=== PATIENT | female | born 1995 | race Caucasian/White ===

== ENCOUNTER → 2020-02-28 16:16 | Outpatient (CLI) | payer SELFPAY ==
[2020-02-28 10:15] VITALS: BMI 21.2
== END ==
PROVIDERS: Referring Provider Nurse Practitioner Family; Visit Provider Nurse Practitioner Family
DX: L05.01 Pilonidal cyst with abscess (principal); T14.8XXA Other injury of unspecified body region, initial encounter
CPT/HCPCS: 87070; 87075; 87077; 87205

== ENCOUNTER 2020-03-19 12:05 | Observation (INO) | payer SELFPAY ==
[2020-02-28 10:15] VITALS: BMI 21.2
--- NOTE | 2020-03-18 20:45 | PCM.HP.BLA ---
History and Physical Date of Admission: 03/19/20 HISTORY OF PRESENT ILLNESS 24 year old woman presents with a recurrent painful pilonidal cyst ulcer that has worsened over the last several months. She had her initial excision of her pilonidal cyst a year and a half ago. The wound was left open and healed in secondarily. It has since recurred. She denies trauma. She denies fever. She presents at this time for further evaluation and treatment. PAST MEDICAL HISTORY Frequent headaches Pilonidal cyst Port-wine stain PAST SURGICAL HISTORY excision of pilonidal cyst ALLERGIES No Known Allergies MEDICATIONS NK FAMILY HISTORY Father - Arthritis, High cholesterol Mother - Diabetes Aunt - Uterine cancer Grandfather - Cancer Grandmother - Diabetes Grandfather - Diabetes SOCIAL HISTORY Smoking Status: Never smoker alcohol intake: never substance use type: does not use REVIEW OF SYSTEMS General - Denies fever, fatigue, and weight loss. Eyes - Denies cataracts and glaucoma. ENT - Denies nasal congestion and sore throat. Endocrine - Denies excessive thirst and urination. Skin - Denies suspicious lesions and skin cancer. Has recurrent pilonidal cyst ulcer. Musculoskeletal - Denies joint pain, joint stiffness, weakness of muscles and joints, back pain, and arthritis. Neuro - Denies headaches. Cardiovascular - Denies chest pain, fatigue, and shortness of breath with exertion. Psych - Denies anxiety and depression. Respiratory - Denies chronic cough and shortness of breath. Gastrointestinal - Denies nausea, vomiting, diarrhea, and constipation. Hematologic - Denies abnormal bruising and bleeding. Genitourinary - Denies hematuria and urinary frequency. PHYSICAL EXAMINATION General - Alert and Oriented. HEENT - PERRL. EOMI. Throat is clear. Neck - Supple and nontender. No cervical adenopathy. Lungs - Clear to auscultation. Heart - Regular rate and rhythm. Abdomen - Soft and nondistended. Extremities - FROM. No axillary adenopathy. Radial pulses are palpable. Sacral - There is a nonhealing pilonidal cyst ulcer. Tender to palpation. Measures 1.5 x 1 cm. No exposed bone. Neuro - CN II-XII grossly intact. Psych - Normal mood and affect. ASSESSMENT Recurrent painful complicated pilonidal cyst ulcer. PLAN Recommend excision of this recurrent painful complicated pilonidal cyst ulcer and send tissue to Pathology for analysis to rule out carcinoma and to Microbiology for culture. A positive culture would necessitate antibiotic therapy. Would leave the wound open and proceed with postop wound care with the VAC or with daily Silver dressing changes. Will probably excise down to the fascia. From her previous excision, if there is exposed bone after the excision, then a partial ostectomy for osteomyelitis would be done. Surgery will be done under general anesthesia with a surgical observation overnight stay in the hospital. Anticipate increased metabolic demands from the surgery. Will check a Prealbumin and encourage nutritional supplementation with protein to help the healing process. Patient was informed of the risks and complications of the procedure including alternatives to surgery. These were discussed with the patient personally. Patient voices understanding and wishes to proceed. Some of the risks and complications were included in a form from the [place] [employer]. After excision, the wound will be larger. Options for wound closure include a fasciocutaneous flap. These require postoperative bedrest for 4-6 weeks. Patient is not interested in postoperative bedrest at this time. We discussed the current risks associated with COVID-19. While it is understood that there is a community spread of COVID-19, the risk of cleopatra COVID-19 while at [facility] ([facility]) is very low; however, the risk cannot be completely mitigated because of the community spread of the disease. We discussed in detail the risk of exposure to and/or potential harm posed by the COVID-19 virus with having a surgery/procedure at this time versus the risk of delaying the surgery/procedure. It is not possible to know either the risk of delaying the surgery or procedure or chance of getting an infection with perfect accuracy, but a joint decision was made to proceed at this time with the scheduled surgery/procedure as indicated on the consent form. Patient was notified that we will need to comply with any screening or testing [facility] wishes to perform or that surgery may be delayed for any positive results. Discussed with the patient that I was tested for COVID-19 on 08/10/19 which was negative and on 08/24/19 which was negative and on 09/07/19 which was negative and on 09/21/19 which was negative and on 10/05/19 which was negative and on 10/26/19 which was negative and on 11/16/19 which was negative and on 12/21/19 which was negative and on 01/11/20 which was negative and on 01/30/20 which was negative. My testing regimen at this time is to be COVID-19 tested every 2 weeks or so. I received the COVID-19 vaccine (Moderna) on 02/07/20 and the second vaccine dose was received on 03/06/20. Procedure Criteria Procedure Type: Elective COVID Risk Discussion: The surgeon/proceduralist and patient have discussed in detail the risk of exposure to and/or potential harm posed by the COVID-19 virus with having a surgery/procedure at this time versus the risk of delaying the surgery/procedure. It is not possible to know either the risk of delaying the surgery or procedure or chance of getting an infection with perfect accuracy, but a joint decision was made between the patient and the surgeon/proceduralist to proceed at this time with the scheduled surgery/procedure as indicated on the consent form.
[2020-03-19] VITALS (10 sets, daily range): BP systolic 95–112; BP diastolic 53–71; PULSE 7–108; RESP 14–18; TEMP 36.2–37.2; O2SAT 93–100; BMI 21.9
[2020-03-19 10:31] LABS: Internal QC Validated? YES +Cl - CLEAR BKGD; Pregnancy, Urine Negative Negative
[2020-03-19] MEDS: Lactated Ringers 1,000 ML 100 ML IV ×3 (10:37→23:39)
--- NOTE | 2020-03-19 11:05 | CYST_PTH ---
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 Jamison Asencio MD : [id number] BED: 1 DIS: 03/20/2020 SPEC #: [id number] RECD: 03/19/20 11:59 STATUS: FLAVIO FLORY #: [id number] DONNA: 03/19/20 11:[address]: Jamison Asencio DEPT: SURGICAL PATHOLOGY RECD BY: Socorro Oquendo Tissues: CYST Procedures: Surgery Specimen Level III HEADER OPERATION: Surgical prep sacral area with excision painful, recurrent PRE-OP DIAGNOSIS: Recurrent, painful, complicated pilonidal cyst ulcer TISSUE SUBMITTED: Pilonidal cyst ulcer MICROSCOPIC DIAGNOSIS Pilonidal cyst, excision: Consistent with pilonidal cyst and sinus tract, inflamed. AM:jackie 03/20/2020 MICROSCOPIC DESCRIPTION Slides are reviewed. GROSS DESCRIPTION Received in fixative is one container labeled with the patient's name and designated pilonidal cyst ulcer. The specimen consists of a butterfield-white skin ellipse with underlying tissue measuring 4.5 x 1.5 cm and up to 1.7 cm in thickness. A focal area of congestion is noted on the surface. Also present in the container is a triangular piece of butterfield-white skin with underlying tissue measuring 3.5 x 3 cm and up to 3 cm in thickness. Sections do not reveal any mass lesion. Stonemason Supervisor sections are submitted in one cassette. / NAZIA:jackie 03/19/20 TC:2 CPT: 63118
[2020-03-19] MEDS: Lidocaine 2% /Epi 1:100 (50ml) 50 ML Vial (11:39)
--- NOTE | 2020-03-19 11:56 | OP.PCM_ITS ---
Report of Operation Date of Procedure: 03/19/20 Pre-Operative Diagnosis: Recurrent painful complicated pilonidal cyst ulcer. Post-Operative Diagnosis: Recurrent painful complicated pilonidal cyst ulcer with left gluteal extension. Surgery/Procedure Performed:: Excision recurrent painful complicated extensive pilonidal cyst ulcer with left gluteal extension (39 cm2). Description of Surgical Findings:: 24 year old woman presents with a recurrent painful pilonidal cyst ulcer that has worsened over the last several months. She had her initial excision of her pilonidal cyst a year and a half ago. The wound was left open and healed in secondarily. It has since recurred. She denies trauma. She denies fever. Patient was informed of the risks and complications of the procedure including alternatives to surgery. These were discussed with the patient personally. Patient voices understanding and wishes to proceed. Some of the risks and complications were included in a form from the [place] [employer]. Size of defect sacral area - 6 x 6.5 x 3 cm. prefabricated houses trimmer: None Type of Anesthesia:: General Specimen's removed: Recurrent painful complicated extensive pilonidal cyst ulcer with left gluteal extension to Pathology and Microbiology. Drains: None. Estimated Blood Loss (mL): 25 ml. Description of Procedure: Patient was taken to OR in supine position and was placed under general anesthesia. She was placed in the prone position. Excess hair was shaved. The pilonidal cyst ulcer was prepped and draped in the usual fashion. I placed the gluteal skin on stretch to help with exposure. SCD's were placed for DVT prophylaxis. Perioperative antibiotics were given intravenously. Using xylocaine with epinephrine, the pilonidal cyst ulcer was infiltrated. After waiting 5 minutes for the anesthetic to take effect, I proceeded with excision of this recurrent painful complicated pilonidal cyst ulcer down through the subcutaneous tissue until the sacral fascia was seen. There was no bone exposed. Extensive scar tissue was seen from previous surgical excisions. No pus was seen. When I got down to the sacral fascia there was a sinus tract extending on to the left gluteal area at the level of the gluteus muscle. The sinus tract was unroofed to allow easier wound care. It is important to completely excise the pilonidal cyst ulcer including any sinus tract extensions. Some of the tissue was sent to Pathology for analysis to rule out carcinoma and some of the tissue was sent to Microbiology for culture. A positive culture will necessitate antibiotic therapy. Hemostasis was obtained with electrocautery. The wound was irrigated with saline. The size of the wound after excision of this recurrent painful complicated extensive pilonidal cyst ulcer with left gluteal extension is 6 x 6.5 x 3 cm or 39 cm2. The wound was dressed with Mepitel nonadherent dressing followed by Kerlix gauze and Betadine and dry Kerlix gauze with ABD pads compression dressing. Meshed underwear was then applied. Patient tolerated the procedure well and was sent to PACU in satisfactory condition. Patient will be sent upstairs for continued postop care. Will either apply the VAC tomorrow or begin Dakin's dressing changes daily. After discharge will followup at the Wound Center. If there is a plateau in the healing process, can proceed with delayed closure with skin grafting. Grafts/Implants Used: None. - Complications None. - Admit VTE Documentation VTE Present on Admission: No VTE Mechan Device Prophylaxis: SCD's VTE Pharm Prophylaxis ordered?: No Surgery Charges CPT - 83922 ICD-10 - L05.91, L98.492
--- NOTE | 2020-03-19 14:53 | NURSING ---
In to talk with patient and mother. discussed the cost of renting the wound VAC and supplies needed as well as the need for home health. Pt is self pay and does not want the expense of the wound VAC and home health. Mother states she will be able to change the dressings at home. States she has changed them in the past. Mother will be in tomorrow am around 11am and will be taught the dressing change. Pt and mother very appreciative.
[2020-03-19] MEDS: Docusate Sodium 100 MG Capsule PO (21:32)
[2020-03-20 01:39] VITALS: BP 91/45; PULSE 57; RESP 16; TEMP 36.6; O2SAT 95
[2020-03-20 05:27] LABS: Hematocrit 41.4 % (37-47); Hemoglobin 13.8 g/dL (12.0-15.0); Mean Corp Hgb Conc 33.3 g/dL (32-36); Mean Corpuscular Hgb 30.1 pg (27.0-32.0); Mean Corpuscular Volume 90.2 fL (81-99); Mean Platelet Vol. 10.5 fl (6.2-12.0); Platelet Count 231 K/mm3 (150-450); RBC Distribution Width CV 12.2 % (11.6-14.6); RBC Distribution Width SD 40.4 fl (35.1-43.9); Red Blood Count 4.59 M/mm3 (4.2-5.4); White Blood Count 14.6 K/mm3 (4.4-11.0)
[2020-03-20 05:29] VITALS: BP 96/57; PULSE 60; RESP 16; TEMP 36.8; O2SAT 97
[2020-03-20 05:40] LABS: Erythrocyte Sedimentation Rate 4 mm/hr (0-30)
[2020-03-20 05:58] LABS: Anion Gap 5 (5-15); BUN 11 mg/dL (7-18); BUN/Creat Ratio 15.1 RATIO (10-20); CRP < 2.90 mg/L (0.0-3.0); Calcium,Total 8.7 mg/dL (8.5-10.1); Chloride 107 mmol/L (98-107); Creatinine, Serum 0.73 mg/dL (0.55-1.02); EST Glomerular Filtration Rate 105 mL/min (>60); Est Glom Filt Rate - Afr Amer 127 mL/min (>60); Estimated Creatinine Clearance 86.09 ml/min; Glucose 102 mg/dL (74-106); Potassium 3.9 mmol/L (3.5-5.1); Prealbumin 23.3 mg/dL (20.0-40.0); Sodium Level 139 mmol/L (136-145)
[2020-03-20] MEDS: Docusate Sodium 100 MG Capsule PO (08:20)
[2020-03-20] MEDS: Fluconazole 100 MG Tablet 400 MG PO (08:24)
[2020-03-20] MEDS: oxyCODONE 5 MG Tablet 10 MG PO (08:27)
[2020-03-20 10:03] VITALS: BP 92/51; PULSE 63; RESP 18; TEMP 37.1; O2SAT 99
--- NOTE | 2020-03-20 11:06 | NURSING ---
wound photo: sacrum
[2020-03-20] MEDS: DAKIN'S SOL HALF STRENGTH (=0.25%) 1 APPLIC TOPICAL (11:36)
--- NOTE | 2020-03-20 13:33 | PCM.PN.SRG ---
Subjective: Postop #1 Patient sitting in bed, states pain is well controlled. - Physical Exam Vitals/I&O's: Vital Signs Temp Pulse Resp BP Pulse Ox 98.7 F 63 18 92/51 L 99 03/20/20 10:03 03/20/20 10:03 03/20/20 10:03 03/20/20 10:03 03/20/20 10:03 Oxygen Delivery Method Room Air Weight: 112 lb 6.972 oz Body Mass Index (BMI) 21.9 Intake and Output for Last 24 Hours 03/18/20 03/19/20 03/20/20 23:59 23:59 23:59 Intake Total 2128.00 / 222.00 2534.33 / 2534.33 Balance 2128. / 2228.00 2534.33 / 2534.33 General: Alert, Oriented x3, Cooperative HEENT: Atraumatic Oral: Moist Mucosa Lungs: Normal air movement Cardiovascular: Regular rate Extremities: No edema, Capillary Refill Less than 3 Seconds Skin: Ulcer/ Wound - Sacral wound is stable. No active bleeding. Operatived dressing removed and Dakin's moistened gauze placed. Musculoskeletal: No Tenderness to Palpation of Joints or Extremities Neurological: Cranial nerves II-XII grossly intact Psych/Mental Status: Normal Affect, Appropriate Microbiology Past 72 Hours 03/19/20 12:21 Wound Abcess - Pilondial Gram Stain - Final 03/19/20 12:21 Wound Abcess - Pilondial Wound Culture - Preliminary No growth-Final to follow 03/18/20 09:40 Interface Orders SARS-CoV-2 Antigen (Rapid) - Final Laboratory Results 03/20/20 05:08: WBC 14.6 H, RBC 4.59, Hgb 13.8, Hct 41.4, MCV 90.2, MCH 30.1, MCHC 33.3, RDW Std Deviation 40.4, RDW Coeff of Avani 12.2, Plt Count 231, MPV 10.5, ESR 4 03/20/20 05:08: Sodium 139, Potassium 3.9, Chloride 107, Carbon Dioxide 27.0, Anion Gap 5, BUN 11, Creatinine 0.73, Estim Creat Clear Calc 86.09, Est GFR (MDRD) Af Amer 127, Est GFR (MDRD) Non-Af 105, BUN/Creatinine Ratio 15.1, Glucose 102, Calcium 8.7, C-React Prot Ext Range < 2.90, Prealbumin 23.3 Current Medications Diazepam (Diazepam 5 Mg Tablet) 5 mg PO 4X/DAY PRN PRN PRN Reason: SPASMS Docusate Sodium (Docusate Sodium 100 Mg Capsule) 100 mg PO BID [facility] Last Admin: 03/20/20 08:20 Dose: 100 mg Documented by: Fluconazole (Fluconazole 100 Mg Tablet) 400 mg PO DAILY [facility] Last Admin: 03/20/20 08:24 Dose: 400 mg Documented by: Hydromorphone HCl (Hydromorphone 1 Mg/Ml Syringe) 1 mg IV Q4H PRN PRN PRN Reason: Pain Score 6-10 Lactated Ringer's () 1,000 mls @ 100 mls/hr IV .Q10H [facility] Last Infusion: 03/20/20 11:36 Dose: Infused Documented by: Ampicillin Sodium/Sulbactam (Sodium 3 gm/ Sodium Chloride) 112 mls @ 150 mls/hr IV Q6 [facility] Last Infusion: 03/20/20 12:33 Dose: Infused Documented by: Nutritional Formula (Nutritional Supplement (Mac) Packet) [facility] Last Admin: 03/20/20 08:23 Dose: 1 packet Documented by: Ondansetron HCl (Ondansetron 4 Mg/2 Ml Vial) 4 mg IV Q6H PRN PRN PRN Reason: NAUSEA Oxycodone HCl (Oxycodone 5 Mg Tablet) 10 mg PO Q4H PRN PRN PRN Reason: Pain Score 4-5 Last Admin: 03/20/20 08:27 Dose: 10 mg Documented by: Promethazine HCl (Promethazine 25 Mg Tablet) 25 mg PO Q4H PRN PRN PRN Reason: NAUSEA/VOMITING Sodium Chloride (0.9% Saline Lock 10 Ml Syringe) 10 - 40 ml IV UD PRN PRN Reason: SALINE FLUSH Sodium Hypochlorite (Dakin's Jennifer Half Strength (=0.25%)) 1 applic TOPICAL DAILY [facility]; Protocol Last Admin: 03/20/20 11:36 Dose: 1 applic Documented by: Medical Necessity - Tobacco Use Smoking Status: Never smoker Tobacco Use: Non-smoker Assessment/Plan 1. Pilonidal cyst without abscess 2. 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 Patient is doing well. Pain is well controlled. Wound care will be Dakin's moistened gauze covered by gauze daily. Her mother feels comfortable doing the dressing changes. Operative cultures are pending. Cultures from 02/28/20 showed Corynebacterium amycolatum, Presumptive C. albicans and Anaerobic cocci. She will continue her Augmentin (she has some at home) and Diflucan. Prealbumin 23.3. Encouraged increase protein intake to help with wound healing. She will follow up Wednesday at the wound center.
--- NOTE | 2020-03-20 13:59 | DCINST_ITS ---
You will use the following diet at home:: Regular Discharge Activity: May not drive while taking narcotic pain medications., May Shower May resume sexual activity in: 4-6 weeks Lifting Restrictions: 20 lb weight lifting restriction Call your doctor if your incision/area has: Continuous Slow Oozing, Sudden Increased Bleeding, Increased Pain/ Swelling, Increased Redness, Foul Smelling Discharge, Swelling at the incision site Call your doctor if you observe: Fever of 101 or Higher, Inability to urinate, Inability to have a bowel movement, Shortness of breath, Dizziness, Chest pain, Calf discomfort, Uncontrolled pain Change Dressing in (Days):: 1 - Wash with mild soap and water daily. Daily Dakin's moistened gauze dressing change daily, topped with dry gauze. Cleanse incision/area with: Soap & Water Allergies/Adverse Reactions: Allergies No Known Allergies Allergy (Verified 03/11/20 11:13) Medications to take at Discharge amoxicillin 875 mg-potassium clavulanate 125 mg tablet 1 tab PO Q12H 14 Days #28 tab 03/08/20 L.acidoph,Paracasei, B.lactis [Probiotic] 1 ea PO DAILY 03/11/20 Fluconazole [Diflucan] 400 mg PO DAILY 30 Days #60 tab 03/20/20 Oxycodone HCl/Acetaminophen [Percocet 5/325] 1 tablet PO Q6H PRN PRN 7 Days #28 tablet 03/20/20 proMETHazine tablet [Phenergan tablet] 25 mg PO Q6H PRN PRN 7 Days #30 tab 03/20/20 The following prescriptions were given: Fluconazole [Diflucan] 400 mg PO DAILY 30 Days #60 tab Transmission Status: Pending to [facility] Oxycodone HCl/Acetaminophen [Percocet 5/325] 1 tablet PO Q6H PRN PRN 7 Days #28 tablet PRN Reason: Pain Score 6-10 Transmission Status: Sent to [facility] proMETHazine tablet [Phenergan tablet] 25 mg PO Q6H PRN PRN 7 Days #30 tab PRN Reason: Nausea Transmission Status: Pending to [facility] Primary Care Physician: MIKEY MOODY [Other] Test Results: Test results from this visit will be discussed in further detail at your follow- up appointment, if applicable. Please Follow Up With: Dr. Luis M Perez Wednesday at Wound Center on Wednesday03/25/19. [phone] Proposed Discharge Date: 03/20/20
== END 2020-03-20 16:06 | disposition home or self-care (01) ==
LOC: SDC 13:10 → MS3 13:10
PROVIDERS: Anesthesiology; Admitting Provider Surgery; Referring Provider Surgery; Visit Provider Surgery
PROC: (CPT 11772; principal; 2020-03-19 10:50)
DX: L05.91 Pilonidal cyst without abscess (principal); Z20.828 Contact with and (suspected) exposure to other viral communicable diseases
CPT/HCPCS: 00300; 11772; 80048; 81025; 84134; 85027; 85652; 86140; 87070; 87075; 87102; 87176; 87205; 87206; 87426; 88304; 96361; 96365; 96366; 99218; 99251; C9803; J7120; G0378; G0379; G0463; J0295; J2405

== ENCOUNTER 2020-03-25 10:21 | Outpatient (RCR) | payer SELFPAY ==
[2020-03-19 13:35] VITALS: BMI 21.9
[2020-03-25 10:33] VITALS: BP 102/63; PULSE 71; TEMP 36.5; BMI 21.9
--- NOTE | 2020-03-25 23:12 | PN.PCM_ITS ---
Type of Wound Date of Service: 03/25/20 Chief Complaint: Nonhealing surgical pilonidal ulcer sacral area. History of Wound: Surgery 03/19/20 - Excision recurrent painful complicated extensive pilonidal cyst ulcer with left gluteal extension (39 cm2). Wound care - Dakin's dressing changes. Operative culture - Anaerobic cocci. Preoperative culture from 02/28/20 showed Corynebacterium amycolatum, Merline albicans and Anaerobic cocci. She was placed on Augmentin and Diflucan and is finishing the Augmentin. Prealbumin from 03/20/20 was 23.3. Encourage nutritional supplementation with protein to help the healing process. She has noticed some muscle spasm with the Dakin's dressing changes. Today she denies fever. Her appetite is good. Progress of Wound: Recent surgery 03/19/20. - Physical Exam Vital Signs Temp Pulse BP 97.7 F L 71 102/63 03/25/20 10:33 03/25/20 10:33 03/25/20 10:33 Wound Measurements and Assessment WC - Nurse 1 - General Ulcer Measurement Start: 03/25/20 10:26 Freq: Status: Active Protocol: Activity Type Activity Date Activity User E-Sign Co-Sign Detail Recorded Client Recorded Date Recorded By Document 03/25/20 10:33 [facility] [id number] 03/25/20 10:49 [facility] 03/25/20 10:33 Wound Center Nurse 1 [Ulcer Assessment] #1- L BUTTOCK/SACRAL POST OP -Combined with other wound No -Current Size (cm) - Length 6.4 -Current Size (cm) - Width 2 -Current Size (cm) - Depth 4.1 -Total Square Cm 12.8 -Date of Last Picture (Recall this 03/25/20 field) -Photo Taken Yes -Epithelialization None Present -Tunneling No -Undermining/Tunneling No -Circular Undermining No -Exudate Amt Large -Exudate Type Serosanguineous -Wound Margin Distinct, Outline Attached -Granulation Amt Large (67-100%) -Granulation Quality Red -Slough/Fibrin Yes -Necrosis Amt Medium (34-66%) -Necrotic Tissue Type Adherent Slough -Texture (Idalia-wound Skin Appearance) Assessed -Moisture ([place]alia-wound Skin Appearance Assessed ) -Color ([place]alia-wound Skin Appearance) Assessed -Temperature ([place]-wound Skin No Abnormality Appearance) (Pt Warm) -Tenderness on Palpation ([place]-wound Yes Skin Appearance) -Ulcer Cleansing SOAPY WATER -Foul Odor after Cleansing No -Anesthetic Used 4% Lidocaine Solution JAMES - Nurse 2 - General Ulcer CM Notes Start: 03/25/20 10:26 Freq: Status: Active Protocol: Activity Type Activity Date Activity User E-Sign Co-Sign Detail Recorded Client Recorded Date Recorded By Document 03/25/20 11:02 CHET [id number] 03/25/20 11:07 CHET 03/25/20 11:02 Wound Center Nurse 2 [Procedure/Treatment] -Correct Patient No -Correct Side, Site, Position No -Correct Procedure No -Procedure Performed No -Tunneling No -Undermining/Tunneling No -Circular Undermining No -Wound/Ulcer Outcome Not Healed -Ulcer Cleansing Rinsed/ Irrigated with Saline -Foul Odor after Cleansing No -Bioengineered Tissue No -Debridement - Subq, 1st 20sq cm No [See Physician Procedure note for Specifics] Pain Scale: 0-10 Numeric [Pain] -Is Patient Pain Free? Yes - Nurse 3 - General Ulcer D/C NN Start: 03/25/20 10:26 Freq: Status: Active Protocol: Activity Type Activity Date Activity User E-Sign Co-Sign Detail Recorded Client Recorded Date Recorded By Document 03/25/20 11:20 DL [id number] 03/25/20 11:23 DL 03/25/20 11:20 Wound Care Nurse 3 [Wound Dressing] #1- L BUTTOCK/SACRAL POST OP -Ulcer Cleansing soap and water -Primary Dressing Covered/Secured Dry Gauze, with Secured with Tape,Other -Other Covering moist to dry topped with dry Pain Scale: 0-10 Numeric [Pain] -Is Patient Pain Free? Yes - Visit Discharge [Visit Discharge Information] -Discharge Condition Stable -Ambulatory Status Ambulatory -Accompanied by mother -Medication Reconcilliation completed No & provided to patient/care provider -Clinical Summary of Care Provided Yes Debridement Note Post-Debridement Measurements/Treatment JAMES - Nurse 2 - General Ulcer CM Notes Start: 03/25/20 10:26 Freq: Status: Active Protocol: Activity Type Activity Date Activity User E-Sign Co-Sign Detail Recorded Client Recorded Date Recorded By Document 03/25/20 11:02 CHET [id number] 03/25/20 11:07 JF 03/25/20 11:02 Wound Center Nurse 2 #1- L BUTTOCK/SACRAL POST OP -Correct Patient No -Correct Side, Site, Position No -Correct Procedure No -Procedure Performed No -Tunneling No -Undermining/Tunneling No -Circular Undermining No -Wound/Ulcer Outcome Not Healed -Ulcer Cleansing Rinsed/ Irrigated with Saline -Foul Odor after Cleansing No -Bioengineered Tissue No -Debridement - Subq, 1st 20sq cm No Pain Scale: 0-10 Numeric Is Patient Pain Free? Yes WC - Nurse 3 - General Ulcer D/C NN Start: 03/25/20 10:26 Freq: Status: Active Protocol: Activity Type Activity Date Activity User E-Sign Co-Sign Detail Recorded Client Recorded Date Recorded By Document 03/25/20 11:20 DL [id number] 03/25/20 11:23 DL 03/25/20 11:20 Wound Care Nurse 3 #1- L BUTTOCK/SACRAL POST OP -Ulcer Cleansing soap and water -Primary Dressing Covered/Secured with Dry Gauze, Secured with Tape,Other -Other Covering moist to dry topped with dry Pain Scale: 0-10 Numeric Is Patient Pain Free? Yes WC - Visit Discharge Discharge Condition Stable Ambulatory Status Ambulatory Accompanied by mother Medication Reconcilliation completed & No provided to patient/care provider Clinical Summary of Care Provided Yes Wound debrided: #1 Sacral area. Laterality: Not Applicable Wound Grade/Stage: 2. No debridement was completed today - Patient had recent surgery on 03/19/20. Assessment/Plan Assessment: 1. Recurrent painful complicated pilonidal cyst ulcer with left gluteal extension. 2. s/p excision recurrent painful complicated extensive pilonidal cyst ulcer with left gluteal extension (39 cm2). Plan: Continue Dakin's dressing changes daily. Operative culture showed Anaerobic cocci. Preop culture from 02/28/20 showed Corynebacerium amycolatum, Merline albicans, and Anaerobic cocci. She is currently on Augmentin and Diflu can and is finishing the Augmentin. Prealbumin from 03/20/20 was 23.3. Encourage nutritional supplementation with protein to help the healing process. Wrote script for Valium for spasm (21 tabs). Followup 2 weeks. [id number]: [id number] Global Visit - ICD-10 - Z48.89, L98.492, L05.91
== END 2020-04-07 23:59 ==
LOC: WC 10:21
PROVIDERS: Visit Provider Nurse Practitioner Family
DX: L05.91 Pilonidal cyst without abscess (principal)
CPT/HCPCS: 99213; G0463

== ENCOUNTER 2020-05-06 10:15 | Outpatient (RCR) | payer SELFPAY ==
[2020-04-08 00:37] VITALS: BP 102/63; PULSE 71; TEMP 36.5
[2020-04-08 11:07] VITALS: BP 101/65; PULSE 62; RESP 16; TEMP 35.9; BMI 21.9
--- NOTE | 2020-04-08 12:41 | PCM.WC.PN ---
(1) Chronic ulcer of sacral region with fat layer exposed Status: Chronic Code(s): L98.492 - Non-pressure chronic ulcer of skin of other sites with fat layer exposed (2) Pilonidal cyst without abscess Status: Chronic Code(s): L05.91 - Pilonidal cyst without abscess Type of Wound Date of Service: 04/08/20 Chief Complaint: Nonhealing surgical pilonidal ulcer sacral area. History of Wound: Surgery 03/19/20 - Excision recurrent painful complicated extensive pilonidal cyst ulcer with left gluteal extension (39 cm2). Wound care - Dakin's dressing changes topped with an ABD pad. Operative culture - Anaerobic cocci. Preoperative culture from 02/28/20 showed Corynebacterium amycolatum, Merline albicans and Anaerobic cocci. She was placed on Augmentin and Diflucan and is finishing the Augmentin. Prealbumin from 03/20/20 was 23.3. Encourage nutritional supplementation with protein to help the healing process. She has noticed some muscle spasm with the Dakin's dressing changes. Today she denies fever. Her appetite is good. Progress of Wound: Recent surgery 03/19/20. Also showing improvement, it is a nice beefy pink color. It is decreasing in depth. - Physical Exam Vital Signs Temp Pulse Resp BP 96.7 F L 62 16 101/65 04/08/20 11:07 04/08/20 11:07 04/08/20 11:07 04/08/20 11:07 General: Alert, Oriented x3, Cooperative HEENT: Atraumatic Oral: Moist Mucosa Lungs: Normal air movement Cardiovascular: Regular rate Extremities: No edema, Capillary Refill Less than 3 Seconds Skin: Ulcer/ Wound - Sacral ulcer is beefy pink with decreased depth. Wound Measurements and Assessment WC - Nurse 1 - General Ulcer Measurement Start: 04/08/20 11:07 Freq: Status: Active Protocol: Activity Type Activity Date Activity User E-Sign Co-Sign Detail Recorded Client Recorded Date Recorded By Document 04/08/20 11:07 [facility] [id number] 04/08/20 11:17 [facility] 04/08/20 11:07 Wound Center Nurse 1 [Ulcer Assessment] #1- L BUTTOCK/SACRAL POST OP -Combined with other wound No -Current Size (cm) - Length 5 -Current Size (cm) - Width 1.6 -Current Size (cm) - Depth 4.4 -Total Square Cm 8.0 -Photo Taken No -Epithelialization Small 1-33% -Tunneling No -Undermining/Tunneling No -Circular Undermining No -Exudate Amt Medium -Exudate Type Serosanguineous -Wound Margin Distinct, Outline Attached -Granulation Amt Large (67-100%) -Granulation Quality Red -Slough/Fibrin Yes -Necrosis Amt Small (1-33%) -Necrotic Tissue Type Adherent Slough -Texture ([place]-wound Skin Appearance) Assessed, Scarring -Moisture ([place]-wound Skin Appearance Assessed ) -Color ([place]-wound Skin Appearance) Assessed -Temperature ([place]-wound Skin No Abnormality Appearance) (Pt Warm) -Tenderness on Palpation ([place]-wound No Skin Appearance) -Ulcer Cleansing Rinsed/ Irrigated with Saline -Foul Odor after Cleansing No -Anesthetic Used 4% Lidocaine Solution WC - Nurse 2 - General Ulcer CM Notes Start: 04/08/20 11:07 Freq: Status: Active Protocol: Activity Type Activity Date Activity User E-Sign Co-Sign Detail Recorded Client Recorded Date Recorded By Document 04/08/20 11:35 CHET [id number] 04/08/20 11:40 CHET 04/08/20 11:35 Wound Center Nurse 2 [Procedure/Treatment] -Time 11:37 -Correct Patient Yes -Correct Side, Site, Position Yes -Correct Procedure Yes -Procedure Performed Yes -Type of Procedure Debridement -Clinical Debridement Subcutaneous -Tissue Removed Subcutaneous -Post Debridement (cm) - Length 5 -Post Debridement (cm) - Width 2.8 -Post Debridement (cm) - Depth 3.2 -Total Square (Post) (cm) 14.0 -Area of Debridement (cm) - Length 5 -Area of Debridement (cm) - Width 2.8 -Total Square (Area) (cm) 14.0 -Tunneling No -Undermining/Tunneling No -Circular Undermining No -Wound/Ulcer Outcome Not Healed -Ulcer Cleansing Rinsed/ Irrigated with Saline -Foul Odor after Cleansing No -Bioengineered Tissue No -Bleeding Controlled with Pressure -Offloading No -Treatment Response Procedure Tolerated Well -Debridement - Subq, 1st 20sq cm Yes [See Physician Procedure note for Specifics] Pain Scale: 0-10 Numeric [Pain] -Is Patient Pain Free? Yes WC - Nurse 3 - General Ulcer D/C NN Start: 04/08/20 11:07 Freq: Status: Active Protocol: Activity Type Activity Date Activity User E-Sign Co-Sign Detail Recorded Client Recorded Date Recorded By Document 04/08/20 11:49 DL [id number] 04/08/20 11:50 DL 04/08/20 11:49 Wound Care Nurse 3 [Wound Dressing] #1- L BUTTOCK/SACRAL POST OP -Ulcer Cleansing Rinsed/ Irrigated with Saline -Foul Odor after Cleansing No -Other Dressing moist to dry/ super absorbant -Primary Dressing Covered/Secured Dry Gauze, with Secured with Tape [Post Procedure Tolerated] -Treatment Response Procedure Tolerated Well Pain Scale: 0-10 Numeric [Pain] -Is Patient Pain Free? Yes - Visit Discharge [Visit Discharge Information] -Discharge Condition Stable -Ambulatory Status Ambulatory -Transportation Private Auto Musculoskeletal: No Tenderness to Palpation of Joints or Extremities Neurological: Cranial nerves II-XII grossly intact Psych/Mental Status: Normal Affect, Appropriate Debridement Note Post-Debridement Measurements/Treatment - Nurse 2 - General Ulcer CM Notes Start: 04/08/20 11:07 Freq: Status: Active Protocol: Activity Type Activity Date Activity User E-Sign Co-Sign Detail Recorded Client Recorded Date Recorded By Document 04/08/20 11:35 CHET [id number] 04/08/20 11:40 CHET 04/08/20 11:35 Wound Center Nurse 2 #1- L BUTTOCK/SACRAL POST OP -Time 11:37 -Correct Patient Yes -Correct Side, Site, Position Yes -Correct Procedure Yes -Procedure Performed Yes -Type of Procedure Debridement -Clinical Debridement Subcutaneous -Tissue Removed Subcutaneous -Post Debridement (cm) - Length 5 -Post Debridement (cm) - Width 2.8 -Post Debridement (cm) - Depth 3.2 -Total Square (Post) (cm) 14.0 -Area of Debridement (cm) - Length 5 -Area of Debridement (cm) - Width 2.8 -Total Square (Area) (cm) 14.0 -Tunneling No -Undermining/Tunneling No -Circular Undermining No -Wound/Ulcer Outcome Not Healed -Ulcer Cleansing Rinsed/ Irrigated with Saline -Foul Odor after Cleansing No -Bioengineered Tissue No -Bleeding Controlled with Pressure -Offloading No -Treatment Response Procedure Tolerated Well -Debridement - Subq, 1st 20sq cm Yes Pain Scale: 0-10 Numeric Is Patient Pain Free? Yes WC - Nurse 3 - General Ulcer D/C NN Start: 04/08/20 11:07 Freq: Status: Active Protocol: Activity Type Activity Date Activity User E-Sign Co-Sign Detail Recorded Client Recorded Date Recorded By Document 04/08/20 11:49 DL [id number] 04/08/20 11:50 DL 04/08/20 11:49 Wound Care Nurse 3 #1- L BUTTOCK/SACRAL POST OP -Ulcer Cleansing Rinsed/ Irrigated with Saline -Foul Odor after Cleansing No -Other Dressing moist to dry/ super absorbant -Primary Dressing Covered/Secured with Dry Gauze, Secured with Tape Treatment Response Procedure Tolerated Well Pain Scale: 0-10 Numeric Is Patient Pain Free? Yes WC - Visit Discharge Discharge Condition Stable Ambulatory Status Ambulatory Transportation Private Auto Wound debrided: Sacral ulcer Type of Debridement: Excisional debridement Anesthesia Used: 5% Lidocaine Gel Depth: Down to and including healthy tissue, in the subcutaneous layer Percentage of wound debrided: 100 Instrument Used: 5mm curette Tissue Removed: Subcutaneous tissue and slough Severity: Fat Layer Exposed Amount of bleeding with debridement: Mild Bleeding Controlled with: Pressure Patient tolerated procedure well Assessment/Plan Assessment: 1. Recurrent painful complicated pilonidal cyst ulcer with left gluteal extension. 2. s/p excision recurrent painful complicated extensive pilonidal cyst ulcer with left gluteal extension (39 cm2). Plan: Continue Dakin's dressing changes daily topped with ABD pad. Operative culture showed Anaerobic cocci. Preop culture from 02/28/20 showed Corynebacerium amycolatum, Merline albicans, and Anaerobic cocci. She is currently on Augmentin and Diflucan and is finishing the Augmentin. Prealbumin from 03/20/20 was 23.3. Encourage nutritional supplementation with protein to help the healing process. She states that her pain is well controlled, and is rarely taking Valium for muscle spasms. She is to continue her fluconazole which she has a refill for. We will check a CMP at her next visit. Followup 2 weeks. [id number]: [id number] Global Visit
[2020-04-22 10:42] VITALS: BP 113/60; PULSE 59; RESP 16; TEMP 36.8; BMI 21.9
[2020-04-22 11:34] VITALS: BP 115/60
[2020-04-22 12:55] LABS: ALB/GLOB Ratio 1.1 RATIO (0.9-2.4); AST(SGOT) 20 U/L (15-37); Alanine Aminotransfer ALT/SGPT 23 U/L (13-56); Alkaline Phosphatase 56 U/L (45-117); Anion Gap 3 (5-15); BUN 17 mg/dL (7-18); BUN/Creat Ratio 19.2 RATIO (10-20); Calcium,Total 9.3 mg/dL (8.5-10.1); Chloride 104 mmol/L (98-107); Creatinine, Serum 0.89 mg/dL (0.55-1.02); EST Glomerular Filtration Rate 84 mL/min (>60); Est Glom Filt Rate - Afr Amer 101 mL/min (>60); Estimated Creatinine Clearance 70.61 ml/min; Globulin 3.6 g/dL (2.2-4.2); Glucose 84 mg/dL (74-106); Protein, Total 7.6 g/dL (6.4-8.2); Sodium Level 137 mmol/L (136-145)
--- NOTE | 2020-04-22 14:44 | PCM.WC.PN ---
(1) Chronic ulcer of sacral region with fat layer exposed Status: Chronic Code(s): L98.492 - Non-pressure chronic ulcer of skin of other sites with fat layer exposed (2) Pilonidal cyst without abscess Status: Chronic Code(s): L05.91 - Pilonidal cyst without abscess Type of Wound Date of Service: 04/22/20 Chief Complaint: Nonhealing surgical pilonidal ulcer sacral area. History of Wound: Surgery 03/19/20 - Excision recurrent painful complicated extensive pilonidal cyst ulcer with left gluteal extension (39 cm2). Wound care - Dakin's dressing changes topped with an ABD pad. Operative culture - Anaerobic cocci. Preoperative culture from 02/28/20 showed Corynebacterium amycolatum, Merline albicans and Anaerobic cocci. She was placed on Augmentin and Diflucan and is finishing the Augmentin. Prealbumin from 03/20/20 was 23.3. Encourage nutritional supplementation with protein to help the healing process. She has noticed some muscle spasm with the Dakin's dressing changes. Today she denies fever. Her appetite is good. Progress of Wound: Improved overall size and depth. - Physical Exam Vital Signs Temp Pulse Resp BP 98.2 F 59 L 16 115/60 04/22/20 10:42 04/22/20 10:42 04/22/20 10:42 04/22/20 11:34 General: Alert, Oriented x3, Cooperative HEENT: Atraumatic Oral: Moist Mucosa Lungs: Normal air movement Cardiovascular: Regular rate Extremities: No edema, Capillary Refill Less than 3 Seconds Skin: Ulcer/ Wound - Coccyx ulcer is beefy pink in color and smaller in size and depth. Wound Measurements and Assessment WC - Nurse 1 - General Ulcer Measurement Start: 04/08/20 11:07 Freq: Status: Active Protocol: Activity Type Activity Date Activity User E-Sign Co-Sign Detail Recorded Client Recorded Date Recorded By Document 04/22/20 10:42 [facility] [id number] 04/22/20 10:53 [facility] 04/22/20 10:42 Wound Center Nurse 1 [Ulcer Assessment] #1- L BUTTOCK/SACRAL POST OP -Combined with other wound No -Current Size (cm) - Length 3.4 -Current Size (cm) - Width 1.4 -Current Size (cm) - Depth 1 -Total Square Cm 4.76 -Photo Taken No -Epithelialization Small 1-33% -Tunneling No -Undermining/Tunneling No -Circular Undermining No -Exudate Amt Medium -Exudate Type Serosanguineous -Wound Margin Distinct, Outline Attached -Granulation Amt Large (67-100%) -Granulation Quality Red -Slough/Fibrin Yes -Necrosis Amt Small (1-33%) -Necrotic Tissue Type Adherent Slough -Texture ([place]-wound Skin Appearance) Assessed, Scarring -Moisture ([place]-wound Skin Appearance Assessed ) -Color ([place]-wound Skin Appearance) Assessed -Temperature ([place]-wound Skin No Abnormality Appearance) (Pt Warm) -Tenderness on Palpation ([place]-wound No Skin Appearance) -Ulcer Cleansing Rinsed/ Irrigated with Saline -Foul Odor after Cleansing No -Anesthetic Used 4% Lidocaine Solution JAMES - Nurse 2 - General Ulcer CM Notes Start: 04/08/20 11:07 Freq: Status: Active Protocol: Activity Type Activity Date Activity User E-Sign Co-Sign Detail Recorded Client Recorded Date Recorded By Document 04/22/20 11:22 CHET [id number] 04/22/20 11:27 CHET 04/22/20 11:22 Wound Center Nurse 2 [Procedure/Treatment] -Time 11:23 -Correct Patient Yes -Correct Side, Site, Position Yes -Correct Procedure Yes -Procedure Performed Yes -Type of Procedure Debridement -Clinical Debridement Subcutaneous -Tissue Removed Subcutaneous -Post Debridement (cm) - Length 3.5 -Post Debridement (cm) - Width 2.3 -Post Debridement (cm) - Depth 1.7 -Total Square (Post) (cm) 8.05 -Area of Debridement (cm) - Length 3.5 -Area of Debridement (cm) - Width 2.3 -Total Square (Area) (cm) 8.05 -Tunneling No -Undermining/Tunneling No -Circular Undermining No -Wound/Ulcer Outcome Not Healed -Ulcer Cleansing Rinsed/ Irrigated with Saline -Foul Odor after Cleansing No -Bioengineered Tissue No -Bleeding Controlled with Pressure -Offloading No -Treatment Response Procedure Tolerated Well -Debridement - Subq, 1st 20sq cm Yes [See Physician Procedure note for Specifics] Pain Scale: 0-10 Numeric [Pain] -Is Patient Pain Free? Yes JAMES - Nurse 3 - General Ulcer D/C NN Start: 04/08/20 11:07 Freq: Status: Active Protocol: Activity Type Activity Date Activity User E-Sign Co-Sign Detail Recorded Client Recorded Date Recorded By Document 04/22/20 11:34 [id number] 04/22/20 11:35 RB 04/22/20 11:34 Wound Care Nurse 3 [Wound Dressing] #1- L BUTTOCK/SACRAL POST OP -Ulcer Cleansing Rinsed/ Irrigated with Saline -Other Dressing moistened gauze -Primary Dressing Covered/Secured Dry Gauze, with Secured with Tape Vital Signs [Blood Pressure] -Blood Pressure (90/60-120/80) 115/60 -Blood Pressure Mean (mm Hg) 78 -Source Monitor -Position Semi-Fowlers -Blood Pressure Location Left Arm Pain Scale: 0-10 Numeric [Pain] -Is Patient Pain Free? Yes WC - Visit Discharge [Visit Discharge Information] -Discharge Condition Stable -Ambulatory Status Ambulatory -Transportation Private Auto -Medication Reconcilliation completed No & provided to patient/care provider -Clinical Summary of Care Provided Yes Musculoskeletal: No Tenderness to Palpation of Joints or Extremities Neurological: Cranial nerves II-XII grossly intact Psych/Mental Status: Normal Affect, Appropriate Debridement Note Post-Debridement Measurements/Treatment WC - Nurse 2 - General Ulcer CM Notes Start: 04/08/20 11:07 Freq: Status: Active Protocol: Activity Type Activity Date Activity User E-Sign Co-Sign Detail Recorded Client Recorded Date Recorded By Document 04/08/20 11:35 [id number] 04/08/20 11:40 Document 04/22/20 11:22 [id number] 04/22/20 11:27 04/08/20 04/22/20 11:35 11:22 Wound Center Nurse 2 #1- L BUTTOCK/SACRAL POST OP -Time 11:37 11:23 -Correct Patient Yes Yes -Correct Side, Site, Position Yes Yes -Correct Procedure Yes Yes -Procedure Performed Yes Yes -Type of Procedure Debridement Debridement -Clinical Debridement Subcutaneous Subcutaneous -Tissue Removed Subcutaneous Subcutaneous -Post Debridement (cm) - Length 5 3.5 -Post Debridement (cm) - Width 2.8 2.3 -Post Debridement (cm) - Depth 3.2 1.7 -Total Square (Post) (cm) 14.0 8.05 -Area of Debridement (cm) - Length 5 3.5 -Area of Debridement (cm) - Width 2.8 2.3 -Total Square (Area) (cm) 14.0 8.05 -Tunneling No No -Undermining/Tunneling No No -Circular Undermining No No -Wound/Ulcer Outcome Not Healed Not Healed -Ulcer Cleansing Rinsed/ Rinsed/ Irrigated with Irrigated with Saline Saline -Foul Odor after Cleansing No No -Bioengineered Tissue No No -Bleeding Controlled with Pressure Pressure -Offloading No No -Treatment Response Procedure Procedure Tolerated Well Tolerated Well -Debridement - Subq, 1st 20sq cm Yes Yes Pain Scale: 0-10 Numeric Is Patient Pain Free? Yes Yes - Nurse 3 - General Ulcer D/C NN Start: 04/08/20 11:07 Freq: Status: Active Protocol: Activity Type Activity Date Activity User E-Sign Co-Sign Detail Recorded Client Recorded Date Recorded By Document 04/08/20 11:49 DL [id number] 04/08/20 11:50 DL Document 04/22/20 11:34 RB [id number] 04/22/20 11:35 RB 04/08/20 04/22/20 11:49 11:34 Wound Care Nurse 3 #1- L BUTTOCK/SACRAL POST OP -Ulcer Cleansing Rinsed/ Rinsed/ Irrigated with Irrigated with Saline Saline -Foul Odor after Cleansing No -Other Dressing moist to dry/ moistened gauze super absorbant -Primary Dressing Covered/Secured with Dry Gauze, Dry Gauze, Secured with Secured with Tape Tape Treatment Response Procedure Tolerated Well Vital Signs Blood Pressure (90/60-120/80) 115/60 Blood Pressure Mean (mm Hg) 78 Source Monitor Position Semi-Fowlers Blood Pressure Location Left Arm Pain Scale: 0-10 Numeric Is Patient Pain Free? Yes Yes WC - Visit Discharge Discharge Condition Stable Stable Ambulatory Status Ambulatory Ambulatory Transportation Private Auto Private Auto Medication Reconcilliation completed & No provided to patient/care provider Clinical Summary of Care Provided Yes Wound debrided: Coccyx Type of Debridement: Excisional debridement Anesthesia Used: 5% Lidocaine Gel Depth: Down to and including healthy tissue, in the subcutaneous layer Percentage of wound debrided: 100 Instrument Used: 5mm curette Tissue Removed: Subcutaneous tissue and slough Severity: Fat Layer Exposed Amount of bleeding with debridement: Mild Bleeding Controlled with: Pressure Patient tolerated procedure well Assessment/Plan Active Problems (Last Updated 03/01/20 @ 10:[address] Jamison Asencio MD) Chronic ulcer of sacral region with fat layer exposed (Chronic) Pilonidal cyst without abscess (Chronic) Assessment: 1. Recurrent painful complicated pilonidal cyst ulcer with left gluteal extension. 2. s/p excision recurrent painful complicated extensive pilonidal cyst ulcer with left gluteal extension (39 cm2). Plan: Continue Dakin's dressing changes daily topped with ABD pad. Operative culture showed Anaerobic cocci. Preop culture from 02/28/20 showed Corynebacerium amycolatum, Merline albicans, and Anaerobic cocci. She is currently on Augmentin and Diflucan and is finishing the Augmentin. Prealbumin from 03/20/20 was 23.3. Encourage nutritional supplementation with protein to help the healing process. She states that her pain is well controlled, and is rarely taking Valium for muscle spasms. She is to continue her fluconazole which she has a refill for. CMP obtained today, 04/22/20. AST 20, Alk Phos 56, ALT 23, Total Bili 0.40. Followup 2 weeks. 111xxx-113xx: [id number] Global Visit
[2020-05-06 09:28] VITALS: BP 103/46; PULSE 58; RESP 16; TEMP 36.1; BMI 21.9
--- NOTE | 2020-05-06 11:27 | PN.PCM_ITS ---
(1) Chronic ulcer of sacral region with fat layer exposed Status: Chronic Code(s): L98.492 - Non-pressure chronic ulcer of skin of other sites with fat layer exposed (2) Pilonidal cyst without abscess Status: Chronic Code(s): L05.91 - Pilonidal cyst without abscess Type of Wound Date of Service: 05/06/20 Chief Complaint: Nonhealing surgical pilonidal ulcer sacral area. History of Wound: Surgery 03/19/20 - Excision recurrent painful complicated extensive pilonidal cyst ulcer with left gluteal extension (39 cm2). Wound care - Dakin's dressing changes topped with an ABD pad. Operative culture - Anaerobic cocci. Preoperative culture from 02/28/20 showed Corynebacterium amycolatum, Merline albicans and Anaerobic cocci. She was placed on Augmentin and Diflucan and is finished with them both. Prealbumin from 03/20/20 was 23.3. Encourage nutritional supplementation with protein to help the healing process. She has noticed some muscle spasm with the Dakin's dressing changes. Today she denies fever. Her appetite is good. Progress of Wound: Improved overall size and depth. - Physical Exam Vital Signs Temp Pulse Resp BP 96.9 F L 58 L 16 103/46 L 05/06/20 09:28 05/06/20 09:28 05/06/20 09:28 05/06/20 09:28 General: Alert, Oriented x3, Cooperative HEENT: Atraumatic Oral: Moist Mucosa Lungs: Normal air movement Cardiovascular: Regular rate Extremities: No edema, Capillary Refill Less than 3 Seconds Skin: Ulcer/ Wound - Sacral ulcer is improved, decreased in over size and depth. Beefy pink in color. Wound Measurements and Assessment WC - Nurse 1 - General Ulcer Measurement Start: 04/08/20 11:07 Freq: Status: Active Protocol: Activity Type Activity Date Activity User E-Sign Co-Sign Detail Recorded Client Recorded Date Recorded By Document 05/06/20 09:28 [facility] [id number] 05/06/20 09:36 [facility] 05/06/20 09:28 Wound Center Nurse 1 [Ulcer Assessment] #1- L BUTTOCK/SACRAL POST OP -Combined with other wound No -Current Size (cm) - Length 2.3 -Current Size (cm) - Width 0.7 -Current Size (cm) - Depth 1.5 -Total Square Cm 1.61 -Photo Taken No -Epithelialization Small 1-33% -Tunneling No -Undermining/Tunneling No -Circular Undermining No -Exudate Amt Medium -Exudate Type Serosanguineous -Wound Margin Distinct, Outline Attached -Granulation Amt Large (67-100%) -Granulation Quality Red -Slough/Fibrin Yes -Necrosis Amt Small (1-33%) -Necrotic Tissue Type Adherent Slough -Texture (Idalia-wound Skin Appearance) Assessed, Scarring -Moisture ([place]alia-wound Skin Appearance Assessed ) -Color ([place]alia-wound Skin Appearance) Assessed -Temperature ([place]-wound Skin No Abnormality Appearance) (Pt Warm) -Tenderness on Palpation ([place]-wound No Skin Appearance) -Ulcer Cleansing soapy water -Foul Odor after Cleansing No -Anesthetic Used 4% Lidocaine Solution WC - Nurse 2 - General Ulcer CM Notes Start: 04/08/20 11:07 Freq: Status: Active Protocol: Activity Type Activity Date Activity User E-Sign Co-Sign Detail Recorded Client Recorded Date Recorded By Document 05/06/20 09:54 CHET [id number] 05/06/20 09:56 CHET 05/06/20 09:54 Wound Center Nurse 2 [Procedure/Treatment] -Time 09:55 -Correct Patient Yes -Correct Side, Site, Position Yes -Correct Procedure Yes -Procedure Performed Yes -Type of Procedure Debridement -Clinical Debridement Subcutaneous -Tissue Removed Subcutaneous -Post Debridement (cm) - Length 2.3 -Post Debridement (cm) - Width 1.8 -Post Debridement (cm) - Depth 0.5 -Total Square (Post) (cm) 4.14 -Area of Debridement (cm) - Length 2.3 -Area of Debridement (cm) - Width 1.8 -Total Square (Area) (cm) 4.14 -Tunneling No -Undermining/Tunneling No -Circular Undermining No -Wound/Ulcer Outcome Not Healed -Ulcer Cleansing Rinsed/ Irrigated with Saline -Foul Odor after Cleansing No -Bioengineered Tissue No -Bleeding Controlled with Pressure -Offloading No -Treatment Response Procedure Tolerated Well -Debridement - Subq, 1st 20sq cm Yes [See Physician Procedure note for Specifics] Pain Scale: 0-10 Numeric [Pain] -Is Patient Pain Free? Yes JAMES - Nurse 3 - General Ulcer D/C NN Start: 04/08/20 11:07 Freq: Status: Active Protocol: Activity Type Activity Date Activity User E-Sign Co-Sign Detail Recorded Client Recorded Date Recorded By Document 05/06/20 09:59 [id number] 05/06/20 09:59 05/06/20 09:59 Wound Care Nurse 3 [Wound Dressing] #1- L BUTTOCK/SACRAL POST OP -Ulcer Cleansing Rinsed/ Irrigated with Saline -Foul Odor after Cleansing No -Other Dressing dakins solution -Primary Dressing Covered/Secured Dry Gauze, with Secured with Tape Pain Scale: 0-10 Numeric [Pain] -Is Patient Pain Free? Yes WC - Visit Discharge [Visit Discharge Information] -Discharge Condition Stable -Ambulatory Status Ambulatory -Transportation Private Auto -Accompanied by mom -Medication Reconcilliation completed Yes & provided to patient/care provider -Clinical Summary of Care Provided Yes Musculoskeletal: No Tenderness to Palpation of Joints or Extremities Neurological: Cranial nerves II-XII grossly intact Psych/Mental Status: Normal Affect, Appropriate Debridement Note Post-Debridement Measurements/Treatment - Nurse 2 - General Ulcer CM Notes Start: 04/08/20 11:07 Freq: Status: Active Protocol: Activity Type Activity Date Activity User E-Sign Co-Sign Detail Recorded Client Recorded Date Recorded By Document 04/08/20 11:35 [id number] 04/08/20 11:40 Document 04/22/20 11:22 [id number] 04/22/20 11:27 Document 05/06/20 09:54 [id number] 05/06/20 09:56 04/08/20 04/22/20 05/06/20 11:35 11:22 09:54 Wound Center Nurse 2 #1- L BUTTOCK/SACRAL POST OP -Time 11:37 11:23 09:55 -Correct Patient Yes Yes Yes -Correct Side, Site, Position Yes Yes Yes -Correct Procedure Yes Yes Yes -Procedure Performed Yes Yes Yes -Type of Procedure Debridement Debridement Debridement -Clinical Debridement Subcutaneous Subcutaneous Subcutaneous -Tissue Removed Subcutaneous Subcutaneous Subcutaneous -Post Debridement (cm) - Length 5 3.5 2.3 -Post Debridement (cm) - Width 2.8 2.3 1.8 -Post Debridement (cm) - Depth 3.2 1.7 0.5 -Total Square (Post) (cm) 14.0 8.05 4.14 -Area of Debridement (cm) - Length 5 3.5 2.3 -Area of Debridement (cm) - Width 2.8 2.3 1.8 -Total Square (Area) (cm) 14.0 8.05 4.14 -Tunneling No No No -Undermining/Tunneling No No No -Circular Undermining No No No -Wound/Ulcer Outcome Not Healed Not Healed Not Healed -Ulcer Cleansing Rinsed/ Rinsed/ Rinsed/ Irrigated with Irrigated with Irrigated with Saline Saline Saline -Foul Odor after Cleansing No No No -Bioengineered Tissue No No No -Bleeding Controlled with Pressure Pressure Pressure -Offloading No No No -Treatment Response Procedure Procedure Procedure Tolerated Well Tolerated Well Tolerated Well -Debridement - Subq, 1st 20sq cm Yes Yes Yes Pain Scale: 0-10 Numeric Is Patient Pain Free? Yes Yes Yes - Nurse 3 - General Ulcer D/C NN Start: 04/08/20 11:07 Freq: Status: Active Protocol: Activity Type Activity Date Activity User E-Sign Co-Sign Detail Recorded Client Recorded Date Recorded By Document 04/08/20 11:49 DL [id number] 04/08/20 11:50 DL Document 04/22/20 11:34 RB [id number] 04/22/20 11:35 RB Document 05/06/20 09:59 [id number] 05/06/20 09:59 04/08/20 04/22/20 05/06/20 11:49 11:34 09:59 Wound Care Nurse 3 #1- L BUTTOCK/SACRAL POST OP -Ulcer Cleansing Rinsed/ Rinsed/ Rinsed/ Irrigated with Irrigated with Irrigated with Saline Saline Saline -Foul Odor after Cleansing No No -Other Dressing moist to dry/ moistened gauze dakins solution super absorbant -Primary Dressing Covered/Secured with Dry Gauze, Dry Gauze, Dry Gauze, Secured with Secured with Secured with Tape Tape Tape Treatment Response Procedure Tolerated Well Vital Signs Blood Pressure (90/60-120/80) 115/60 Blood Pressure Mean (mm Hg) 78 Source Monitor Position Semi-Fowlers Blood Pressure Location Left Arm Pain Scale: 0-10 Numeric Is Patient Pain Free? Yes Yes Yes WC - Visit Discharge Discharge Condition Stable Stable Stable Ambulatory Status Ambulatory Ambulatory Ambulatory Transportation Private Auto Private Auto Private Auto Accompanied by mom Medication Reconcilliation completed & No Yes provided to patient/care provider Clinical Summary of Care Provided Yes Yes Wound debrided: Sacral ulcer Type of Debridement: Excisional debridement Anesthesia Used: 5% Lidocaine Gel Depth: Down to and including healthy tissue, in the subcutaneous layer Percentage of wound debrided: 100 Instrument Used: 5mm curette Tissue Removed: Subcutaneous tissue and slough Severity: Fat Layer Exposed Amount of bleeding with debridement: Mild Bleeding Controlled with: Pressure Patient tolerated procedure well Assessment/Plan Active Problems (Last Updated 03/01/20 @ 10:[address] Jamison Asencio MD) Chronic ulcer of sacral region with fat layer exposed (Chronic) Pilonidal cyst without abscess (Chronic) Assessment: 1. Recurrent painful complicated pilonidal cyst ulcer with left gluteal extension. 2. s/p excision recurrent painful complicated extensive pilonidal cyst ulcer with left gluteal extension (39 cm2). Plan: Continue Dakin's dressing changes daily topped with ABD pad. Operative culture showed Anaerobic cocci. Preop culture from 02/28/20 showed Corynebacer ium amycolatum, Merline albicans, and Anaerobic cocci. She she has completed both the Augmentin and Diflucan. Prealbumin from 03/20/20 was 23.3. Encourage nutritional supplementation with protein to help the healing process. She states that her pain is well controlled, and is rarely taking Valium for muscle spasms. She is to continue her fluconazole which she has a refill for. CMP obtained today, 04/22/20. AST 20, Alk Phos 56, ALT 23, Total Bili 0.40. Followup 2 weeks. 111xxx-113xx: [id number] Global Visit
== END 2020-05-08 23:59 ==
LOC: WC 10:15
PROVIDERS: Referring Provider Nurse Practitioner Family; Visit Provider Nurse Practitioner Family
DX: L98.492 Non-pressure chronic ulcer of skin of other sites with fat layer exposed (principal); L05.91 Pilonidal cyst without abscess; M62.838 Other muscle spasm
CPT/HCPCS: 11042; 36415; 80053

== ENCOUNTER 2020-06-03 09:00 | Outpatient (RCR) | payer SELFPAY ==
[2020-05-09 00:44] VITALS: BP 103/46; PULSE 58; RESP 16; TEMP 36.1
[2020-05-20 09:31] VITALS: BP 100/62; PULSE 59; RESP 16; TEMP 36.2; BMI 21.9
--- NOTE | 2020-05-20 11:47 | PCM.WC.PN ---
(1) Chronic ulcer of sacral region with fat layer exposed Status: Chronic Code(s): L98.492 - Non-pressure chronic ulcer of skin of other sites with fat layer exposed (2) Pilonidal cyst without abscess Status: Chronic Code(s): L05.91 - Pilonidal cyst without abscess Type of Wound Date of Service: 05/20/20 Chief Complaint: Nonhealing surgical pilonidal ulcer sacral area. History of Wound: Surgery 03/19/20 - Excision recurrent painful complicated extensive pilonidal cyst ulcer with left gluteal extension (39 cm2). Wound care - Stop Dakin's moistened gauze. Wash ulcer with Dakin's solution and then cover with Fibracol dressing daily, cover with gauze. Operative culture - Anaerobic cocci. Preoperative culture from 02/28/20 showed Corynebacterium amycolatum, Merline albicans and Anaerobic cocci. She was placed on Augmentin and Diflucan and is finished with them both. Prealbumin from 03/20/20 was 23.3. Encourage nutritional supplementation with protein to help the healing process. She has noticed some muscle spasm with the Dakin's dressing changes. Today she denies fever. Her appetite is good. Progress of Wound: Improved. - Physical Exam Vital Signs Temp Pulse Resp BP 97.2 F L 59 L 16 100/62 05/20/20 09:31 05/20/20 09:31 05/20/20 09:31 05/20/20 09:31 General: Alert, Oriented x3, Cooperative HEENT: Atraumatic Oral: Moist Mucosa Lungs: Normal air movement Cardiovascular: Regular rate Extremities: No edema, Capillary Refill Less than 3 Seconds Skin: Ulcer/ Wound - Pilonidal cyst/coccyx ulcer is beefy pink, and much smaller in size and depth. Wound Measurements and Assessment WC - Nurse 1 - General Ulcer Measurement Start: 05/20/20 09:31 Freq: Status: Active Protocol: Activity Type Activity Date Activity User E-Sign Co-Sign Detail Recorded Client Recorded Date Recorded By Document 05/20/20 09:31 [facility] [id number] 05/20/20 09:34 [facility] 05/20/20 09:31 Wound Center Nurse 1 [Ulcer Assessment] #1- L BUTTOCK/SACRAL POST OP -Current Size (cm) - Length 1.4 -Current Size (cm) - Width 0.3 -Current Size (cm) - Depth 0.1 -Total Square Cm 0.42 -Exudate Amt Small -Exudate Type Serosanguineous -Wound Margin Distinct, Outline Attached -Granulation Amt Large (67-100%) -Granulation Quality Red -Necrosis Amt None Present (0 %) -Texture ([place]-wound Skin Appearance) Assessed, Scarring -Moisture ([place]-wound Skin Appearance No Abnormality, ) Assessed -Color ([place]-wound Skin Appearance) No Abnormality, Assessed -Temperature ([place]-wound Skin No Abnormality Appearance) (Pt Warm) -Tenderness on Palpation ([place]-wound No Skin Appearance) -Ulcer Cleansing Rinsed/ Irrigated with Saline -Foul Odor after Cleansing No -Anesthetic Used 4% Lidocaine Solution JAMES - Nurse 2 - General Ulcer CM Notes Start: 05/20/20 09:31 Freq: Status: Active Protocol: Activity Type Activity Date Activity User E-Sign Co-Sign Detail Recorded Client Recorded Date Recorded By Document 05/20/20 09:59 CHET [id number] 05/20/20 10:01 CHET 05/20/20 09:59 Wound Center Nurse 2 [Procedure/Treatment] -Time 09:59 -Correct Patient Yes -Correct Side, Site, Position Yes -Correct Procedure Yes -Procedure Performed Yes -Type of Procedure Debridement -Clinical Debridement Subcutaneous -Tissue Removed Subcutaneous -Post Debridement (cm) - Length 1.5 -Post Debridement (cm) - Width 1.2 -Post Debridement (cm) - Depth 1 -Total Square (Post) (cm) 1.80 -Area of Debridement (cm) - Length 1.5 -Area of Debridement (cm) - Width 1.2 -Total Square (Area) (cm) 1.80 -Tunneling No -Undermining/Tunneling No -Circular Undermining No -Wound/Ulcer Outcome Not Healed -Ulcer Cleansing Rinsed/ Irrigated with Saline -Foul Odor after Cleansing No -Bioengineered Tissue No -Bleeding Controlled with Pressure -Offloading No -Treatment Response Procedure Tolerated Well -Debridement - Subq, 1st 20sq cm Yes [See Physician Procedure note for Specifics] Pain Scale: 0-10 Numeric [Pain] -Is Patient Pain Free? Yes JAMES - Nurse 3 - General Ulcer D/C NN Start: 05/20/20 09:31 Freq: Status: Active Protocol: Activity Type Activity Date Activity User E-Sign Co-Sign Detail Recorded Client Recorded Date Recorded By Document 05/20/20 10:14 SELENE [id number] 05/20/20 10:15 SELENE 05/20/20 10:14 Wound Care Nurse 3 [Wound Dressing] #1- L BUTTOCK/SACRAL POST OP -Ulcer Cleansing Rinsed/ Irrigated with Saline -Primary Dressing Applied Fibracol Plus 4x4 -Primary Dressing Covered/Secured Dry Gauze, with Secured with Tape -Fibracol Plus 4x4 2 Pain Scale: 0-10 Numeric [Pain] -Is Patient Pain Free? Yes WC - Visit Discharge [Visit Discharge Information] -Discharge Condition Stable -Ambulatory Status Ambulatory -Transportation Private Auto -Accompanied by mother Musculoskeletal: No Tenderness to Palpation of Joints or Extremities Neurological: Cranial nerves II-XII grossly intact Psych/Mental Status: Normal Affect, Appropriate Debridement Note Post-Debridement Measurements/Treatment JAMES - Nurse 2 - General Ulcer CM Notes Start: 05/20/20 09:31 Freq: Status: Active Protocol: Activity Type Activity Date Activity User E-Sign Co-Sign Detail Recorded Client Recorded Date Recorded By Document 05/20/20 09:59 CHET [id number] 05/20/20 10:01 05/20/20 09:59 Wound Center Nurse 2 #1- L BUTTOCK/SACRAL POST OP -Time 09:59 -Correct Patient Yes -Correct Side, Site, Position Yes -Correct Procedure Yes -Procedure Performed Yes -Type of Procedure Debridement -Clinical Debridement Subcutaneous -Tissue Removed Subcutaneous -Post Debridement (cm) - Length 1.5 -Post Debridement (cm) - Width 1.2 -Post Debridement (cm) - Depth 1 -Total Square (Post) (cm) 1.80 -Area of Debridement (cm) - Length 1.5 -Area of Debridement (cm) - Width 1.2 -Total Square (Area) (cm) 1.80 -Tunneling No -Undermining/Tunneling No -Circular Undermining No -Wound/Ulcer Outcome Not Healed -Ulcer Cleansing Rinsed/ Irrigated with Saline -Foul Odor after Cleansing No -Bioengineered Tissue No -Bleeding Controlled with Pressure -Offloading No -Treatment Response Procedure Tolerated Well -Debridement - Subq, 1st 20sq cm Yes Pain Scale: 0-10 Numeric Is Patient Pain Free? Yes - Nurse 3 - General Ulcer D/C NN Start: 05/20/20 09:31 Freq: Status: Active Protocol: Activity Type Activity Date Activity User E-Sign Co-Sign Detail Recorded Client Recorded Date Recorded By Document 05/20/20 10:14 SELENE [id number] 05/20/20 10:15 SELENE 05/20/20 10:14 Wound Care Nurse 3 #1- L BUTTOCK/SACRAL POST OP -Ulcer Cleansing Rinsed/ Irrigated with Saline -Primary Dressing Applied Fibracol Plus 4x4 -Primary Dressing Covered/Secured with Dry Gauze, Secured with Tape -Fibracol Plus 4x4 2 Pain Scale: 0-10 Numeric Is Patient Pain Free? Yes WC - Visit Discharge Discharge Condition Stable Ambulatory Status Ambulatory Transportation Private Auto Accompanied by mother Wound debrided: pilonidal/coccyx ulcer Type of Debridement: Excisional debridement Anesthesia Used: 5% Lidocaine Gel Depth: Down to and including healthy tissue, in the subcutaneous layer Percentage of wound debrided: 100 Instrument Used: 3mm curette Tissue Removed: Subcutaneous tissue and slough Severity: Fat Layer Exposed Amount of bleeding with debridement: Mild Bleeding Controlled with: Pressure Patient tolerated procedure well Assessment/Plan Assessment: 1. Recurrent painful complicated pilonidal cyst ulcer with left gluteal extension. 2. s/p excision recurrent painful complicated extensive pilonidal cyst ulcer with left gluteal extension (39 cm2). Plan: Wound care - Rinse with Dakin's solution and then apply Fibracol dressing covered by gauze daily. Operative culture showed Anaerobic cocci. Preop culture from 02/28/20 showed Corynebacerium amycolatum, Merline albicans, and Anaerobic cocci. She she has completed both the Augmentin and Diflucan. Prealbumin from 03/20/20 was 23.3. Encourage nutritional supplementation with protein to help the healing process. She states that her pain is well controlled, and is rarely taking Valium for muscle spasms. She is to continue her fluconazole which she has a refill for. CMP obtained today, 04/22/20. AST 20, Alk Phos 56, ALT 23, Total Bili 0.40. Followup 2 weeks. 111xxx-113xx: [id number] Global Visit
[2020-06-03 09:03] VITALS: BP 109/67; PULSE 70; RESP 18; TEMP 36.3; BMI 21.9
--- NOTE | 2020-06-03 11:37 | PN.PCM_ITS ---
(1) Chronic ulcer of sacral region with fat layer exposed Status: Chronic Code(s): L98.492 - Non-pressure chronic ulcer of skin of other sites with fat layer exposed (2) Pilonidal cyst without abscess Status: Chronic Code(s): L05.91 - Pilonidal cyst without abscess Type of Wound Date of Service: 06/03/20 Chief Complaint: Nonhealing surgical pilonidal ulcer sacral area. History of Wound: Surgery 03/19/20 - Excision recurrent painful complicated extensive pilonidal cyst ulcer with left gluteal extension (39 cm2). Wound care - Stop Dakin's moistened gauze. Wash ulcer with Dakin's solution and then cover with Fibracol dressing daily, cover with gauze. Operative culture - Anaerobic cocci. Preoperative culture from 02/28/20 showed Corynebacterium amycolatum, Merline albicans and Anaerobic cocci. She was placed on Augmentin and Diflucan and is finished with them both. Prealbumin from 03/20/20 was 23.3. Encourage nutritional supplementation with protein to help the healing process. She has noticed some muscle spasm with the Dakin's dressing changes. Today she denies fever. Her appetite is good. Progress of Wound: Improved. - Physical Exam Vital Signs Temp Pulse Resp BP 97.4 F L 70 18 109/67 06/03/20 09:03 06/03/20 09:03 06/03/20 09:03 06/03/20 09:03 Wound Measurements and Assessment WC - Nurse 1 - General Ulcer Measurement Start: 05/20/20 09:31 Freq: Status: Active Protocol: Activity Type Activity Date Activity User E-Sign Co-Sign Detail Recorded Client Recorded Date Recorded By Document 06/03/20 09:03 DL [id number] 06/03/20 09:08 DL 06/03/20 09:03 Wound Center Nurse 1 [Ulcer Assessment] #1- L BUTTOCK/SACRAL POST OP -Current Size (cm) - Length 0.7 -Current Size (cm) - Width 0.2 -Current Size (cm) - Depth 0.2 -Total Square Cm 0.14 -Photo Taken No -Exudate Amt Small -Exudate Type Serosanguineous -Wound Margin Distinct, Outline Attached -Granulation Amt Small (1-33%) -Granulation Quality Red -Necrosis Amt None Present (0 %) -Structure Exposed N/A -Texture ([place]-wound Skin Appearance) Scarring -Moisture ([place]-wound Skin Appearance No Abnormality ) -Color ([place]-wound Skin Appearance) No Abnormality -Temperature ([place]-wound Skin No Abnormality Appearance) (Pt Warm) -Tenderness on Palpation ([place]-wound No Skin Appearance) -Ulcer Cleansing Rinsed/ Irrigated with Saline -Foul Odor after Cleansing No -Anesthetic Used 4% Lidocaine Solution JAMES - Nurse 2 - General Ulcer CM Notes Start: 05/20/20 09:31 Freq: Status: Active Protocol: Activity Type Activity Date Activity User E-Sign Co-Sign Detail Recorded Client Recorded Date Recorded By Document 06/03/20 10:01 CHET [id number] 06/03/20 10:02 06/03/20 10:01 Wound Center Nurse 2 [Procedure/Treatment] -Time 10:02 -Correct Patient Yes -Correct Side, Site, Position Yes -Correct Procedure Yes -Procedure Performed Yes -Type of Procedure Debridement -Clinical Debridement Subcutaneous -Tissue Removed Subcutaneous -Post Debridement (cm) - Length 1.2 -Post Debridement (cm) - Width 0.4 -Post Debridement (cm) - Depth 0.2 -Total Square (Post) (cm) 0.48 -Area of Debridement (cm) - Length 1.2 -Area of Debridement (cm) - Width 0.4 -Total Square (Area) (cm) 0.48 -Tunneling No -Undermining/Tunneling No -Circular Undermining No -Wound/Ulcer Outcome Not Healed -Ulcer Cleansing Rinsed/ Irrigated with Saline -Foul Odor after Cleansing No -Bioengineered Tissue No -Bleeding Controlled with Pressure -Offloading No -Treatment Response Procedure Tolerated Well -Debridement - Subq, 1st 20sq cm Yes [See Physician Procedure note for Specifics] Pain Scale: 0-10 Numeric [Pain] -Is Patient Pain Free? Yes JAMES - Nurse 3 - General Ulcer D/C NN Start: 05/20/20 09:31 Freq: Status: Active Protocol: Activity Type Activity Date Activity User E-Sign Co-Sign Detail Recorded Client Recorded Date Recorded By Document 06/03/20 10:02 CHET [id number] 06/03/20 10:03 CHET 06/03/20 10:02 Wound Care Nurse 3 [Wound Dressing] #1- L BUTTOCK/SACRAL POST OP -Ulcer Cleansing Rinsed/ Irrigated with Saline -Foul Odor after Cleansing No -Primary Dressing Applied C Hydrogel ($) -Primary Dressing Covered/Secured Dry Gauze, with Secured with Tape Pain Scale: 0-10 Numeric [Pain] -Is Patient Pain Free? Yes - Visit Discharge [Visit Discharge Information] -Discharge Condition Stable -Ambulatory Status Ambulatory -Transportation Private Auto -Medication Reconcilliation completed Yes & provided to patient/care provider -Clinical Summary of Care Provided Yes Debridement Note Post-Debridement Measurements/Treatment - Nurse 2 - General Ulcer CM Notes Start: 05/20/20 09:31 Freq: Status: Active Protocol: Activity Type Activity Date Activity User E-Sign Co-Sign Detail Recorded Client Recorded Date Recorded By Document 05/20/20 09:59 [id number] 05/20/20 10:01 Document 06/03/20 10:01 [id number] 06/03/20 10:02 05/20/20 06/03/20 09:59 10:01 Wound Center Nurse 2 #1- L BUTTOCK/SACRAL POST OP -Time 09:59 10:02 -Correct Patient Yes Yes -Correct Side, Site, Position Yes Yes -Correct Procedure Yes Yes -Procedure Performed Yes Yes -Type of Procedure Debridement Debridement -Clinical Debridement Subcutaneous Subcutaneous -Tissue Removed Subcutaneous Subcutaneous -Post Debridement (cm) - Length 1.5 1.2 -Post Debridement (cm) - Width 1.2 0.4 -Post Debridement (cm) - Depth 1 0.2 -Total Square (Post) (cm) 1.80 0.48 -Area of Debridement (cm) - Length 1.5 1.2 -Area of Debridement (cm) - Width 1.2 0.4 -Total Square (Area) (cm) 1.80 0.48 -Tunneling No No -Undermining/Tunneling No No -Circular Undermining No No -Wound/Ulcer Outcome Not Healed Not Healed -Ulcer Cleansing Rinsed/ Rinsed/ Irrigated with Irrigated with Saline Saline -Foul Odor after Cleansing No No -Bioengineered Tissue No No -Bleeding Controlled with Pressure Pressure -Offloading No No -Treatment Response Procedure Procedure Tolerated Well Tolerated Well -Debridement - Subq, 1st 20sq cm Yes Yes Pain Scale: 0-10 Numeric Is Patient Pain Free? Yes Yes - Nurse 3 - General Ulcer D/C NN Start: 05/20/20 09:31 Freq: Status: Active Protocol: Activity Type Activity Date Activity User E-Sign Co-Sign Detail Recorded Client Recorded Date Recorded By Document 05/20/20 10:14 SELENE [id number] 05/20/20 10:15 SELENE Document 06/03/20 10:02 CHET [id number] 06/03/20 10:03 CHET 05/20/20 06/03/20 10:14 10:02 Wound Care Nurse 3 #1- L BUTTOCK/SACRAL POST OP -Ulcer Cleansing Rinsed/ Rinsed/ Irrigated with Irrigated with Saline Saline -Foul Odor after Cleansing No -Primary Dressing Applied Fibracol Plus C Hydrogel ($) 4x4 -Primary Dressing Covered/Secured with Dry Gauze, Dry Gauze, Secured with Secured with Tape Tape -Fibracol Plus 4x4 2 Pain Scale: 0-10 Numeric Is Patient Pain Free? Yes Yes WC - Visit Discharge Discharge Condition Stable Stable Ambulatory Status Ambulatory Ambulatory Transportation Private Auto Private Auto Accompanied by mother Medication Reconcilliation completed & Yes provided to patient/care provider Clinical Summary of Care Provided Yes Assessment/Plan Active Problems (Last Updated 03/01/20 @ 10:[address] Jamison Asencio MD) Chronic ulcer of sacral region with fat layer exposed (Chronic) Pilonidal cyst without abscess (Chronic) Assessment: 1. Recurrent painful complicated pilonidal cyst ulcer with left gluteal extension. 2. s/p excision recurrent painful complicated extensive p ilonidal cyst ulcer with left gluteal extension (39 cm2). Plan: Wound care - Rinse with Dakin's solution and then apply Fibracol dressing covered by gauze daily. Operative culture showed Anaerobic cocci. Preop culture from 02/28/20 showed Corynebacerium amycolatum, Merline albicans, and Anaerobic cocci. She she has completed both the Augmentin and Diflucan. Prealbumin from 03/20/20 was 23.3. Encourage nutritional supplementation with protein to help the healing process. She states that her pain is well controlled, and is rarely taking Valium for muscle spasms. She is to continue her fluconazole which she has a refill for. CMP obtained today, 04/22/20. AST 20, Alk Phos 56, ALT 23, Total Bili 0.40. Followup 2 weeks.
== END 2020-06-07 23:59 ==
LOC: WC 09:00
PROVIDERS: Referring Provider Nurse Practitioner Family; Visit Provider Nurse Practitioner Family
DX: L98.492 Non-pressure chronic ulcer of skin of other sites with fat layer exposed (principal); L05.91 Pilonidal cyst without abscess
CPT/HCPCS: 11042

== ENCOUNTER 2020-07-01 09:15 | Outpatient (RCR) | payer SELFPAY ==
[2020-06-08 00:42] VITALS: BP 109/67; PULSE 70; RESP 18; TEMP 36.3
[2020-06-17 09:21] VITALS: BP 108/63; PULSE 67; TEMP 36.2; BMI 21.9
--- NOTE | 2020-06-17 12:39 | PCM.WC.PN ---
History of Present Illness Date of Service: 06/17/20 Chief Complaint: Nonhealing surgical pilonidal ulcer sacral area. History of Wound: Surgery 03/19/20 - Excision recurrent painful complicated extensive pilonidal cyst ulcer with left gluteal extension (39 cm2). Wound care - Stop Dakin's moistened gauze. Wash ulcer with Dakin's solution and then cover with Fibracol dressing daily, cover with gauze. Operative culture - Anaerobic cocci. Preoperative culture from 02/28/20 showed Corynebacterium amycolatum, Merline albicans and Anaerobic cocci. She was placed on Augmentin and Diflucan and is finished with them both. Prealbumin from 03/20/20 was 23.3. Encourage nutritional supplementation with protein to help the healing process. She has noticed some muscle spasm with the Dakin's dressing changes. Today she denies fever. Her appetite is good. Progress of Wound: Improved. Almost healed. Subjective Subjective: Patient denies any complaints. Objective Data Objective Data Vital Signs: Vital Signs Temp Pulse Resp BP 97.2 F L 67 18 108/63 06/17/20 09:21 06/17/20 09:21 06/08/20 00:42 06/17/20 09:21 Weight: 112 lb Body Mass Index (BMI) 21.9 Assessment & Plan Assessment/Plan (1) Chronic ulcer of sacral region with fat layer exposed: (2) Pilonidal cyst without abscess: PLAN: Wound care - Apply collagen hydrogel covered by gauze daily.? Operative culture showed Anaerobic cocci.? Preop culture from 02/28/20 showed Corynebacerium amycolatum, Merline albicans, and Anaerobic cocci.? She she has completed both the Augmentin and Diflucan.? Prealbumin from 03/20/20 was 23.3.? Encourage nutritional supplementation with protein to help the healing process.? She states that her pain is well controlled, and is rarely taking Valium for muscle spasms.? She is to continue her fluconazole which she has a refill for.? CMP obtained 04/22/20.? AST 20, Alk Phos 56, ALT 23, Total Bili 0.40.? Followup 2 weeks. Charges/Coding Procedures Integumentary [id number]: [id number] Julita subq tissue 20 sq cm/< Physical Exam Const alert and oriented x3 General Appearance: cooperative HEENT normocephalic Eyes PERRL Resp normal respiratory effort Cardio regular rate GI non-tender Extremity normal capillary refill Skin Wound Narrative: Pilonidal ulcer is almost healed. The area is very superficial, beefy pink. 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 Any new allergies or adverse reactions No Had a fall/change in ADL's that may No increase risk of falls Signs or symptoms of abuse and/or No neglect since last visit Have you been in the hospital since your No last visit? Has dressing in place as prescribed Yes Has compression in place as prescribed N/A Has offloadiing in place as prescribed N/A Experienced any changes in pain level or No management Left Footwear Regular Shoe Right Footwear Regular Shoe Pain Scale: 0-10 Numeric Is Patient Pain Free? Yes - Nurse 1 - General Ulcer Measurement Start: 06/17/20 09:21 Freq: Status: Active Protocol: Activity Type Activity Date Activity User E-Sign Co-Sign Detail Recorded Client Recorded Date Recorded By Document 06/17/20: SELENE [id number] 06/17/20 09:22 SELENE 06/17/20 09:21 Wound Center Nurse 1 #1- L BUTTOCK/SACRAL POST OP -Current Size (cm) - Length 1.1 -Current Size (cm) - Width 0.3 -Current Size (cm) - Depth 0.2 -Total Square Cm 0.33 -Exudate Amt Small -Exudate Type Serosanguineous -Wound Margin Distinct, Outline Attached -Granulation Amt Medium (34-66%) -Granulation Quality Red -Necrosis Amt None Present (0 %) -Texture ([place]-wound Skin Appearance) Assessed, Scarring -Moisture ([place]-wound Skin Appearance) No Abnormality, Assessed -Color ([place]-wound Skin Appearance) No Abnormality, Assessed -Temperature ([place]-wound Skin No Abnormality Appearance) (Pt Warm) -Tenderness on Palpation ([place]-wound No Skin Appearance) -Ulcer Cleansing Rinsed/ Irrigated with Saline -Foul Odor after Cleansing No -Anesthetic Used 4% Lidocaine Solution JAMES - Nurse 2 - General Ulcer CM Notes Start: 06/17/20 09:21 Freq: Status: Active Protocol: Activity Type Activity Date Activity User E-Sign Co-Sign Detail Recorded Client Recorded Date Recorded By Document 06/17/20 09:53 [id number] 06/17/20 09:58 CHET 06/17/20 09:53 Wound Center Nurse 2 -Time 09:54 -Correct Patient Yes -Correct Side, Site, Position Yes -Correct Procedure Yes -Procedure Performed Yes -Type of Procedure Debridement -Clinical Debridement Subcutaneous -Tissue Removed Subcutaneous -Post Debridement (cm) - Length 1 -Post Debridement (cm) - Width 0.4 -Post Debridement (cm) - Depth 0.1 -Total Square (Post) (cm) 0.4 -Area of Debridement (cm) - Length 1 -Area of Debridement (cm) - Width 0.4 -Total Square (Area) (cm) 0.4 -Tunneling No -Undermining/Tunneling No -Circular Undermining No -Wound/Ulcer Outcome Not Healed -Ulcer Cleansing Rinsed/ Irrigated with Saline -Foul Odor after Cleansing No -Bioengineered Tissue No -Bleeding Controlled with Pressure -Offloading No -Treatment Response Procedure Tolerated Well -Debridement - Subq, 1st 20sq cm Yes Pain Scale: 0-10 Numeric Is Patient Pain Free? Yes JAMES - Nurse 3 - General Ulcer D/C NN Start: 06/17/20 09:21 Freq: Status: Active Protocol: Activity Type Activity Date Activity User E-Sign Co-Sign Detail Recorded Client Recorded Date Recorded By Document 06/17/20 09:58 CHET [id number] 06/17/20 09:58 CHET 06/17/20 09:58 Wound Care Nurse 3 #1- L BUTTOCK/SACRAL POST OP -Ulcer Cleansing Rinsed/ Irrigated with Saline -Foul Odor after Cleansing No -Primary Dressing Applied C Hydrogel ($) -Primary Dressing Covered/Secured with Dry Gauze, Secured with Tape Pain Scale: 0-10 Numeric Is Patient Pain Free? Yes WC - Visit Discharge Discharge Condition Stable Ambulatory Status Ambulatory Transportation Private Auto Medication Reconcilliation completed & Yes provided to patient/care provider Clinical Summary of Care Provided Yes Wound debrided: pilonidal ulcer Type of Debridement: Excisional debridement Anesthesia Used: 5% Lidocaine Gel Depth: Down to and including healthy tissue and in the subcutaneous layer Percentage of wound debrided: 100 Instrument Used: 3mm curette Tissue Removed: Subcutaneous tissue and slough Severity: Limited To Skin Breakdown Amount of bleeding with debridement: Mild Bleeding Controlled with: Pressure Patient tolerated procedure: Patient tolerated procedure well
[2020-07-01 09:04] VITALS: BP 97/55; PULSE 58; RESP 16; TEMP 36.3; BMI 21.9
--- NOTE | 2020-07-01 09:51 | PCM.WC.PN ---
History of Present Illness Date of Service: 07/01/20 Chief Complaint: Nonhealing surgical pilonidal ulcer sacral area. History of Wound: Surgery 03/19/20 - Excision recurrent painful complicated extensive pilonidal cyst ulcer with left gluteal extension (39 cm2). Wound care - Stop Dakin's moistened gauze. Wash ulcer with Dakin's solution and then cover with Fibracol dressing daily, cover with gauze. Operative culture - Anaerobic cocci. Preoperative culture from 02/28/20 showed Corynebacterium amycolatum, Merline albicans and Anaerobic cocci. She was placed on Augmentin and Diflucan and is finished with them both. Prealbumin from 03/20/20 was 23.3. Encourage nutritional supplementation with protein to help the healing process. She has noticed some muscle spasm with the Dakin's dressing changes. Today she denies fever. Her appetite is good. Progress of Wound: Improved. She is healed today. Objective Data Objective Data Vital Signs: Vital Signs Temp Pulse Resp BP 97.3 F L 58 L 16 97/55 L 07/01/20 09:04 07/01/20 09:04 07/01/20 09:04 07/01/20 09:04 Oxygen Delivery Method Room Air Weight: 112 lb Body Mass Index (BMI) 21.9 Charges/Coding Visit Charges Office Visits / Consults: 90311 OV L3 Est Physical Exam Const alert and oriented x3 General Appearance: cooperative HEENT normocephalic Head and Scalp: atraumatic Eyes PERRL Resp normal respiratory effort Cardio regular rate and regular rhythm GI normal to inspection, nondistended, normoactive bowel sounds Extremity normal to inspection, normal capillary refill and no calf tenderness Skin Wound Narrative: Wound in pilonidal area is healed today. There is epithelial skin present over the entire surface of the ulcer. Neuro CN's II-XII intact bilaterally Sensorium / Orientation: awake, alert and oriented to person Psych Appearance: grossly normal Debridement Note Debridement Note No debridement was completed: No debridement was completed today Assessment/Plan Assessment/Plan (1) Chronic ulcer of sacral region with fat layer exposed: CODE(S): L98.492 - Non-pressure chronic ulcer of skin of other sites with fat layer exposed (2) Pilonidal cyst without abscess: CODE(S): L05.91 - Pilonidal cyst without abscess PLAN: Wound care - Now that she is healed, she can apply lotion 1-2 times daily to help soften the scarring. Operative culture showed Anaerobic cocci.? Preop culture from 02/28/20 showed Corynebacerium amycolatum, Merline albicans, and Anaerobic cocci.? She she has completed both the Augmentin and Diflucan.? Prealbumin from 03/20/20 was 23.3.? Encourage nutritional supplementation with protein to help the healing process.? She states that her pain is well controlled, and is rarely taking Valium for muscle spasms.? She completed her fluconazole.? CMP obtained 04/22/20.? AST 20, Alk Phos 56, ALT 23, Total Bili 0.40.? Followup as needed.
== END 2020-07-01 09:30 | disposition home or self-care (01) ==
LOC: WC 09:15
PROVIDERS: Referring Provider Nurse Practitioner Family; Visit Provider Nurse Practitioner Family
DX: L98.492 Non-pressure chronic ulcer of skin of other sites with fat layer exposed (principal); L05.91 Pilonidal cyst without abscess; M62.838 Other muscle spasm
CPT/HCPCS: 11042; 99213; G0463